=== PATIENT | male | born 1995 | race African-American/Black ===

== ENCOUNTER 2021-02-13 11:47 | Emergency (ER) | payer OTHER ==
[~2021-02-13] VITALS: Ht 175.3 cm; Wt 163.3 kg
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
--- NOTE | 2021-02-13 13:14 | NUR ---
IV removed. Catheter intact and site benign. Pressure and 4x4 applied to site. No bleeding noted. Patient discharged in custody in stable condition. Written and verbal after care instructions given. Patient verbalizes understanding of instruction.
[2021-02-13 13:16] VITALS: BP 135/72
== END 2021-02-13 13:16 ==
LOC: ER 12:21
DX: F10.129 Alcohol abuse with intoxication, unspecified (principal); Z91.018 Allergy to other foods; V49.69XA Unspecified car occupant injured in collision with other motor vehicles in traffic accident, initial encounter; Y93.89 Activity, other specified; Y92.413 State road as the place of occurrence of the external cause; Y99.8 Other external cause status; Y90.8 Blood alcohol level of 240 mg/100 ml or more
CPT/HCPCS: 36415; G0480